=== PATIENT | female | born 1985 | race Caucasian/White ===

== ENCOUNTER 2017-12-24 05:35 | Inpatient (IN) | payer BC, SELFPAY ==
[2017-12-24 06:26] VITALS: BMI 43.4
[2017-12-24] MEDS: Lactated Ringers 1,000 ML 50 ML IV ×4 (06:35→18:57)
[2017-12-24 07:07] LABS: Hematocrit 35.5 % (37-47); Hemoglobin 11.5 g/dl (12.0-15.0); Mean Corp Hgb Conc 32.4 g/gl (32-36); Mean Corpuscular Volume 80.1 fL (81-99); Mean Platelet Vol. 11.5 fl (6.2-12.0); Platelet Count 287 K/mm3 (150-450); RBC Distribution Width CV 17.7 % (11.6-14.6); RBC Distribution Width SD 51.3 fl (35.1-43.9); Red Blood Count 4.43 M/mm3 (4.2-5.4); White Blood Count 13.1 K/mm3 (4.4-11.0)
[2017-12-24 07:10] LABS: Scan Indicated on CBC? Y/N NO
[2017-12-24] MEDS: Ondansetron 4 MG/2 ML Vial IV ×2 (07:11→15:15)
[2017-12-24 07:30] LABS: ROM Internal Control Test YES-OK TO RESULT pt. (Internal QC)
[2017-12-24 07:32] LABS: ROM Patient Test POSITIVE (Negative)
[2017-12-24 07:46] LABS: ALB/GLOB Ratio 0.6 RATIO (0.9-2.4); AST(SGOT) 12 U/L (15-37); Alanine Aminotransfer ALT/SGPT 11 U/L (13-56); Albumin, Serum 2.5 g/dL (3.2-5.0); Alkaline Phosphatase 135 U/L (45-117); Anion Gap 13 (5-15); BUN 11 mg/dL (7-18); BUN/Creat Ratio 12.8 RATIO (10-20); Calcium,Total 8.6 mg/dL (8.5-10.1); Chloride 105 mmol/L (98-107); Creatinine, Serum 0.86 mg/dL (0.55-1.02); EST Glomerular Filtration Rate 82 mL/min (>60); Est Glom Filt Rate - Afr Amer 99 mL/min (>60); Estimated Creatinine Clearance 92.17 ml/min; Globulin 4.5 g/dL (2.2-4.2); Glucose 105 mg/dL (74-106); LDH 188 U/L (84-246); Sodium Level 137 mmol/L (136-145); Uric Acid 6.1 mg/dL (2.6-6.0)
--- NOTE | 2017-12-24 08:54 | PCM.PN.BLA ---
Progress Note LABOR PROGRESS NOTE Comfortable with epidural and no complaints. AVSS, BPs 140s/90s GEN - NAD, AAO x 3 FHR 140, moderate variability, + late decelerations TOCO 5/10 min SVE 1cm --> 4/90/-1 with manual lysis of cervical scar tissue; cephalic and OA. A/P: 32yo @ 39wga in active labor, SROM, Cat II FHR -- likely gestational hypertension -GBS neg -Will collect urine p/c from [facility] to r/o preeclampsia -Progressing in labor, maternal repositioning, bolus prn for late decelerations - status overall reassuring
[2017-12-24 09:59] LABS: Protein, Urine (Random) 24.6 mg/dL (<11.9); Protein:Creat Ratio 202 mg/g CRE (0-200)
--- NOTE | 2017-12-24 18:14 | PCM.PN.BLA ---
Progress Note LABOR PROGRESS NOTE Report fatigue with pushing. AVSS GEN - NAD, AAO x 3 FHR 155, moderate variability, + variables - nonrecurrent TOCO 4/10 min SVE FD/0 station, OA with mild caput A/P: 32yo @ 39wga with SROM, in second stage, Cat II FHR - status overall reassuring -Bedside US performed confirming fetus in OA -Will continue pushing given patient already labored down x 1 hour -Repeat exam in 1-2 hours
--- NOTE | 2017-12-24 19:16 | PCM.PN.BLA ---
Progress Note LABOR PROGRESS NOTE Prolonged FHR deceleration nadired to 80s bpm x 3 minutes occurred while patient transferring from hands and knees to maternal side with return to baseline at 150 bpm with minimal variability. SVE FD/0, caput unchanged. 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 She requests a fifteen minute break from pushing due to fatigue. Patient pushed approximately 1.75 hours with no descent thus far and demonstrated good maternal effort on my prior exam. Reviewed indications for section -- 4h pushing. risks reviewed including bleeding, infection, VTE, bowel or bladder injury. EFW 3700-3800g based on most recent US, however given obesity, PCOS and elevated 1h GTT - high risk for macrosomia. I advised at least additional hour of pushing with frequent position changes after her break and will reassess with exam. If no further descent after approximately 3 hours pushing, will plan for section given risk factors. Patient in agreement with plan.
--- NOTE | 2017-12-24 19:50 | PN_ITS ---
Progress Note LABOR PROGRESS NOTE Prolonged FHR deceleration nadired to 80s bpm x 3 minutes occurred while patient transferring from hands and knees to maternal side with return to baseline at 150 bpm with minimal variability. SVE FD/0, caput unchanged. 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 She requests a fifteen minute break from pushing due to fatigue. Patient pushed approximately 1.75 hours with no descent thus far and demonstrated good maternal effort on my prior exam. Reviewed indications for section -- 4h pushing. risks reviewed including bleeding, infection, VTE, bowel or bladder injury. EFW 3700-3800g based on most recent US, however given obesity , PCOS and elevated 1h GTT - high risk for macrosomia. I advised at least additional hour of pushing with frequent position changes after her break and will reassess with exam. If no further descent after approximately 3 hours pushing, will plan for section given risk factors. Patient in agreement with plan.
--- NOTE | 2017-12-24 21:03 | PCM.PN.BLA ---
Progress Note LABOR PROGRESS NOTE C/o headache and nausea. Denies vision changes. Relates significant fatigue. AVSS, BP 120s-130s/70s GEN - NAD, AAO x 3 FHR 150 minimal variability, no accelerations, + variable deceleration TOCO 4/10 min SVE FD/0, caput remains unchanged A/P: 32yo @ 39wga with arrest of descent, Cat II FHR -Reglan for headache and nausea -No further descent on exam despite approximately 3h pushing and maternal fatigue. FD for 5 hours. -Will proceed with section. Reviewed C/S risks including pain, bleeding, hemorrhage, possibly requiring hysterectomy, infection including wound infection or endometritis, VTE, bowel or bladder injury, laceration and TTN. Patient and given opportunity to answer questions and questions answered to their satisfaction.
[2017-12-24] MEDS: Metoclopramide 10 MG/2 ML Vial IV (21:11)
[2017-12-24] MEDS: Sodium Citrate/Citric Acid 30 ML UDC PO ×2 (21:11→21:35)
[2017-12-24] MEDS: Clindamycin 900 MG/50 ML BAG 75 MG IV (21:40)
[2017-12-24] MEDS: Oxytocin 30 units/NS 500 ml 30 UNITS/500 ML IV.SOLN 167 UNITS IV (22:45)
--- NOTE | 2017-12-24 23:08 | OP.PN_ITS ---
- Problem List (1) Arrest of descent, delivered, current hospitalization Status: Acute (2) delivery delivered Status: Acute G-[id number]-Gbjwwjjto PostOp Date of Procedure: 12/24/17 Primary Surgeon/Physician: Jessika Mota, preparation department supervisor: [place]ia Shipley Pre-op Diagnosis: Arrrest of Descent Post-Op Diagnosis: Arrrest of Descent Surgery/Procedure Performed: Primary low transverse Section Description of Surgical Findings:: Male , Apgars 4, 9 and 9. Weight 4114g Estimated Blood Loss: 800 mL Specimens Removed: placenta to WP Drain: Rowland to straight drain Type of Anesthesia: Epidural, Local, - - Ketamine - Admit VTE Documentation VTE Present on Admission: No VTE Mechan Device Prophylaxis: SCD's VTE Pharm Prophylaxis ordered?: No
--- NOTE | 2017-12-24 23:08 | PCM.OB.CSR ---
- Problem List (1) Arrest of descent, delivered, current hospitalization Status: Acute (2) delivery delivered Status: Acute (3) 39 weeks gestation of Status: Acute Delivery Classification: JOSE Final NELDA: 12/31/17 Final NELDA Source: US <20 weeks Gestational age: 39 Weeks and 0 Days [place] doctor who attended delivery (if requested by OB): Denise Li Indications: Rene is a 32-year-old 2 para [id number] weeks gestational age admitted with spontaneous rupture of membranes at 1 cm dilation. She progressed in labor to fully dilated and 0 station. Despite full dilatation for more than 5 hours and pushing for approximately 3 hours there is no further descent of the head. She was counseled and in light of no descent and several risk factors for macrosomia she was advised to proceed with section at this time versus prolonging the second stage. Risks, benefits, indications and alternatives were discussed at length. The patient desired to proceed. Indications for : Arrrest of Descent Description of Procedure: Male , Apgars 4, 9 and 9. Weight 4114g The patient was taken to the operating room and spinal analgesia was administered. She is placed in a dorsal supine position with left lateral tilt. The perineum, vagina and abdomen were prepped and draped in sterile fashion. Timeout was performed. The epidural was not adequate for analgesia despite dosing and waiting approximately 10 minutes. I discussed with the patient further pain management options including nitrous oxide, ketamine, general anesthesia for her section reviewing the risks, benefits of each. She opted for ketamine. I proceeded with lateral ilioinguinal blocks injecting a total of 10 cc of 1% lidocaine diluted in 10 cc of normal saline as well as an additional 5 cc of lidocaine along the anticipated incision. This analgesia was found to be adequate. IV ketamine was administered per anesthesiology. A Pfannenstiel incision was made using a scalpel and brought down to incise the subcutaneous tissue and rectus fascia at the midline. Subcutaneous tissue was bluntly dissected off the fascia laterally. The fascial incision was dissected laterally and cephalad using curved Bland scissors. The superior leaflet of the rectus fascia was grasped using Jazmin clamps and bluntly dissected and sharply dissected from the underlying rectus muscle. In a similar fashion the inferior rectus fascia was dissected from the underlying muscle. The rectus muscles were bluntly at the midline. The peritoneum was identified and entered sharply. The bladder blade was placed into the abdomen and the vesicouterine peritoneal fold identified. The fold was incised and a bladder flap created. Bladder blade was then repositioned to the abdomen. A low transverse hysterotomy was made using the [Metzenbaum scissors] to level of the membranes. The hysterotomy was extended bluntly cephalad and caudad. The membranes were then ruptured revealing clear fluid. The head was elevated and brought to the level of the hysterotomy and the delivered revealing vigorous [male] infant. The appeared to have decreasing respiratory rate thus the cord was doubly clamped and cut after approximately 15 seconds. The infant was passed to awaiting [nursery personnel] and pediatric hospitalist. The placenta was [expressed] from the uterus and appeared intact on inspection. The uterus was cleared of debris. The hysterotomy was then repaired intracorporeally using 0 Vicryl running lock suture. She did complain of some pain during hysterotomy repair and additional 5 cc of 1% lidocaine diluted in 5 cc of normal saline was injected along the hysterotomy line. Malka was placed for continued hemostasis and the bladder blade was removed. The anterior cul-de-sac was cleared of debris. The peritoneum was reapproximated using 2-0 Vicryl running suture. The rectus fascia was closed using 0 Vicryl running suture. The subcutaneous tissue was injected with an additional 5 cc of the above mentioned lidocaine concentration. The subcutaneous tissue was reapproximated using 2-0 Vicryl. The skin was closed using 4-0 Monocryl subcuticularly by the PLC PROGRAMMER under my supervision. This was followed by Cavchan and a Mepilex occlusive dressing was placed over the incision. The fundus was firm. The patient was then transferred to the recovery room without complication. Sponge, instrument, and needle counts were correct ?2. I was present for the entire procedure. Amniotic Membrane Rupture Type: Spontaneous Amniotic Fluid Description: Clear Placenta Disposition: [facility] Specimen(s) sent to pathology: placenta to WP Drain: Rowland to straight drain Cord Entanglement: True Knot(s), - - true knot x 1 Nuchal Cord Compression: Without compression Cord Vessel Description: 3 Vessels Esitmated Blood Loss (ml): 800 Infant Gender: Male (1 minute): 4 (5 minute): 9 Delayed cord clamping: Yes Pre-op Antibiotic Given: - - Clindamycin 900mg IV x 1, Gentamicin 5mg/kg IV x 1 Pt instructed on risks of surgery: Bleeding, Anesthesia Risks, Infection, Injury to surrounding structure(s) including bowel and bladder Complications: None - Admit VTE Documentation VTE Present on Admission: No VTE Mechan Device Prophylaxis: SCD's VTE Pharm Prophylaxis ordered?: No
--- NOTE | 2017-12-24 23:18 | OP.PCM_ITS ---
- Problem List (1) Arrest of descent, delivered, current hospitalization Status: Acute (2) delivery delivered Status: Acute (3) 39 weeks gestation of Status: Acute Delivery Classification: JOSE Final NELDA: 12/31/17 Final NELDA Source: US <20 weeks Gestational age: 39 Weeks and 0 Days [place] doctor who attended delivery (if requested by OB): Denise Li Indications: Rene is a 32-year-old 2 para [id number] weeks gestational age admitted with spontaneous rupture of membranes at 1 cm dilation. She progressed in labor to fully dilated and 0 station. Despite full dilatation for more than 5 hours and pushing for approximately 3 hours there is no further descent of the head. She was counseled and in light of no descent and several risk factors for macrosomia she was advised to proceed with section at this time versus prolonging the second stage. Risks, benefits, indications and alternatives were discussed at length. The patient desired to proceed. Indications for : Arrrest of Descent Description of Procedure: Male , Apgars 4, 9 and 9. Weight 4114g The patient was taken to the operating room and spinal analgesia was administered. She is placed in a dorsal supine position with left lateral tilt. The perineum, vagina and abdomen were prepped and draped in sterile fashion. Timeout was performed. The epidural was not adequate for analgesia despite dosing and waiting approximately 10 minutes. I discussed with the patient further pain management options including nitrous oxide, ketamine, general anesthesia for her section reviewing the risks, benefits of each. She opted for ketamine. I proceeded with lateral ilioinguinal blocks injecting a total of 10 cc of 1% lidocaine diluted in 10 cc of normal saline as well as an additional 5 cc of lidocaine along the anticipated incision. This analgesia was found to be adequate. IV ketamine was administered per anesthesiology. A Pfannenstiel incision was made using a scalpel and brought down to incise the subcutaneous tissue and rectus fascia at the midline. Subcutaneous tissue was bluntly dissected off the fascia laterally. The fascial incision was dissected laterally and cephalad using curved Bland scissors. The superior leaflet of the rectus fascia was grasped using Jazmin clamps and bluntly dissected and sharply dissected from the underlying rectus muscle. In a similar fashion the inferior rectus fascia was dissected from the underlying muscle. The rectus muscles were bluntly at the midline. The peritoneum was identified and entered sharply. The bladder blade was placed into the abdomen and the vesicouterine peritoneal fold identified. The fold was incised and a bladder flap created. Bladder blade was then repositioned to the abdomen. A low transverse hysterotomy was made using the [Metzenbaum scissors] to level of the membranes. The hysterotomy was extended bluntly cephalad and caudad. The membranes were then ruptured revealing clear fluid. The head was elevated and brought to the level of the hysterotomy and the delivered revealing vigorous [male] . The appeared to have decreasing respiratory rate thus the cord was doubly clamped and cut after approximately 15 seconds. The was passed to awaiting [nursery personnel] and pediatric hospitalist. The placenta was [expressed] from the uterus and appeared intact on inspection. The uterus was cleared of debris. The hysterotomy was then repaired intracorporeally using 0 Vicryl running lock suture. She did complain of some pain during hysterotomy repair and additional 5 cc of 1% lidocaine diluted in 5 cc of normal saline was injected along the hysterotomy line. Malka was placed for continued hemostasis and the bladder blade was removed. The anterior cul-de-sac was cleared of debris. The peritoneum was reapproximated using 2-0 Vicryl running suture. The rectus fascia was closed using 0 Vicryl running suture. The subcutaneous tissue was injected with an additional 5 cc of the above mentioned lidocaine concentration. The subcutaneous tissue was reapproximated using 2-0 Vicryl. The skin was closed using 4-0 Monocryl subcuticularly by the ORCHESTRA DIRECTOR under my supervision. This was followed by Cavchan and a Mepilex occlusive dressing was placed over the incision. The fundus was firm. The patient was then transferred to the recovery room without complication. Sponge, instrument, and needle counts were correct ?2. I was present for the entire procedure. Amniotic Membrane Rupture Type: Spontaneous Amniotic Fluid Description: Clear Placenta Disposition: [facility] Specimen(s) sent to pathology: placenta to WP Drain: Rowland to straight drain Cord Entanglement: True Knot(s), - - true knot x 1 Nuchal Cord Compression: Without compression Cord Vessel Description: 3 Vessels Esitmated Blood Loss (ml): 800 Gender: Male (1 minute): 4 (5 minute): 9 Delayed cord clamping: Yes Pre-op Antibiotic Given: - - Clindamycin 900mg IV x 1, Gentamicin 5mg/kg IV x 1 Pt instructed on risks of surgery: Bleeding, Anesthesia Risks, Infection, Injury to surrounding structure(s) including bowel and bladder Complications: None - Admit VTE Documentation VTE Present on Admission: No VTE Mechan Device Prophylaxis: SCD's VTE Pharm Prophylaxis ordered?: No
[2017-12-24 23:20] VITALS: BP 128/70; BP 133/73; PULSE 86; RESP 16; TEMP 37.2; O2SAT 98
[2017-12-24 23:35] VITALS: BP 130/73; BP 133/73; PULSE 89; RESP 12; O2SAT 98
[2017-12-24 23:50] VITALS: BP 122/69; BP 133/73; PULSE 84; RESP 14; TEMP 37.4; O2SAT 96
[2017-12-25] VITALS (22 sets, daily range): BP systolic 108–133; BP diastolic 58–76; PULSE 77–104; RESP 14–18; TEMP 36.5–37.4; O2SAT 96–100
[2017-12-25] MEDS: Ondansetron 4 MG/2 ML Vial IV (01:22)
[2017-12-25] MEDS: Lactated Ringers 1,000 ML 100 ML IV ×2 (03:07→12:17)
[2017-12-25] MEDS: Ketorolac 30 MG/ML Syringe IV ×3 (05:19→17:40)
[2017-12-25] MEDS: Nalbuphine 10 MG/ML Ampul 5 MG IV (06:21)
[2017-12-25] MEDS: Levothyroxine 50 MCG Tablet PO (06:21)
[2017-12-25 07:16] LABS: Hematocrit 28.6 % (37-47); Hemoglobin 9.2 g/dl (12.0-15.0); Mean Corp Hgb Conc 32.2 g/gl (32-36); Mean Corpuscular Hgb 25.8 pg (27.0-32.0); Mean Corpuscular Volume 80.1 fL (81-99); Mean Platelet Vol. 10.7 fl (6.2-12.0); Platelet Count 234 K/mm3 (150-450); RBC Distribution Width CV 17.9 % (11.6-14.6); RBC Distribution Width SD 52.3 fl (35.1-43.9); Red Blood Count 3.57 M/mm3 (4.2-5.4); White Blood Count 15.2 K/mm3 (4.4-11.0)
[2017-12-25 07:18] LABS: Scan Indicated on CBC? Y/N NO
--- NOTE | 2017-12-25 08:01 | PCM.PN.OB ---
Patient Problems: Active and Suspected Problems Arrest of descent, delivered, current hospitalization (Acute) delivery delivered (Acute) 39 weeks gestation of (Acute) Subjective: Pain controlled. +nausea, denies vomiting. No flatus yet. Not yet out of bed. She is bottlefeeding. Objective: AVSS - Physical Exam General: Alert, Oriented x3, Cooperative, No apparent distress HEENT: Atraumatic, Normocephalic Lungs: Clear to auscultation, Normal air movement Cardiovascular: Regular rate, Regular Rhythm Abdomen: Soft, Non Tender, Non-Distended, - - Fundus firm and nontender at 2 FW below umbilicus, lochia scant, incisional dressing c/d/i Extremities: No edema Neurological: Neuro grossly intact Psych/Mental Status: Normal Affect, Appropriate, Alert and oriented to time, place, person, mood and affect Vital Signs Temp Pulse Resp BP Pulse Ox 98.6 F 90 18 120/59 L 99 12/25/17 07:30 12/25/17 07:30 12/25/17 07:30 12/25/17 07:30 12/25/17 07:30 Oxygen Delivery Method Room Air Weight: 126 kg Body Mass Index (BMI) 43.4 Intake and Output for Last 24 Hours 12/23/17 12/24/17 12/25/17 23:59 23:59 23:59 Intake Total 3738 / 3738 807 / 807 Output Total 1400 / 1400 950 / 950 Balance 2338 / 2338 -143 / -143 Laboratory Tests Past 24 Hrs 12/24/17 12/24/17 12/25/17 06:35 09:00 06:42 WBC 15.2 H RBC 3.57 L Hgb 9.2 L Hct 28.6 L MCV 80.1 L MCH 25.8 L MCHC 32.2 RDW 17.9 H RDW Differential 52.3 H Plt Count 234 MPV 10.7 U Random Total Protein 24.6 H Urine Creatinine 122.00 Protein/Creatinin Ratio 202 H Blood Type O POSITIVE Antibody Screen NEGATIVE Assessment/Plan Active and Suspected Problems Arrest of descent, delivered, current hospitalization (Acute) delivery delivered (Acute) 39 weeks gestation of (Acute) 32yo POD#1 s/p LTCS doing well. -Rh positive, Rubella immune -Bottlefeeding -Lovenox for DVT ppx, OOB to chair today -Routine postop care
[2017-12-25] MEDS: Enoxaparin 40 MG/0.4 ML Syringe SC (12:14)
--- NOTE | 2017-12-25 14:53 | NURSING ---
1430 While rounding, Mom has been pumping for 15 minutes and obtained almost a spoon full and taken to the special care nursery. We discussed prior breast massage and expression to help with accelerating her milk supply. We discussed starting her pumping at a slower suction around 30 and increase as able and comfortable. Colostrum taken to [facility]. We also discussed good hydration and increasing her calories by 500 to help with providing a good supply. Encouraged Mom to call if any further questions or concerns with feedings. Shalom PHAN
[2017-12-26 00:10] VITALS: BP 132/74; PULSE 100; RESP 18; TEMP 36.5
[2017-12-26] MEDS: Ketorolac 30 MG/ML Syringe IV ×4 (00:34→17:39)
[2017-12-26] MEDS: 0.9% Saline Lock 10 ML Syringe IV ×3 (00:35→17:39)
[2017-12-26 06:00] VITALS: BP 106/67; PULSE 76; RESP 16; TEMP 36.3
[2017-12-26] MEDS: Levothyroxine 50 MCG Tablet PO (06:07)
[2017-12-26 08:00] VITALS: BP 130/75; PULSE 80; RESP 20; TEMP 36.1; O2SAT 99
[2017-12-26] MEDS: oxyCODONE 5 MG Tablet PO ×3 (09:06→23:06)
--- NOTE | 2017-12-26 13:11 | PCM.PN.OB ---
Patient Problems: Active and Suspected Problems Arrest of descent, delivered, current hospitalization (Acute) delivery delivered (Acute) 39 weeks gestation of (Acute) Subjective: Doing well. pain well controlled. Bleeding light. Pumping and breast feeding. No N/V. Voiding. Objective: Afeb VSS - Physical Exam General: Alert, Oriented x3, Cooperative, No apparent distress Lungs: Clear to auscultation, Normal air movement Cardiovascular: Regular rate, Regular Rhythm Abdomen: Soft, Non Tender, Non-Distended, - - Incision dressing in place. No erythema Extremities: No edema, No Calf Tenderness Skin: No rashes Neurological: Neuro grossly intact Psych/Mental Status: Normal Affect Comment: lochia light Vital Signs Temp Pulse Resp BP Pulse Ox 97.0 F L 80 20 H 130/75 H 99 12/26/17 08:00 12/26/17 08:00 12/26/17 08:00 12/26/17 08:00 12/26/17 08:00 Oxygen Delivery Method Room Air Weight: 277 lb 12.519 oz Body Mass Index (BMI) 43.4 Intake and Output for Last 24 Hours 12/24/17 12/25/17 12/26/17 23:59 23:59 23:59 Intake Total 3738 / 3738 1875 / 1875 Output Total 1400 / 1400 3550 / 3550 200 / 200 Balance 2338 / 2338 -1675 / -1675 -200 / -200 Assessment/Plan Active and Suspected Problems Arrest of descent, delivered, current hospitalization (Acute) delivery delivered (Acute) 39 weeks gestation of (Acute) Doing well on POD#2 s/p primary C/S. Continue routine PO care. Anticipate discharge home tomorrow.
[2017-12-26 13:30] VITALS: BP 120/77; PULSE 97; RESP 16; TEMP 36; O2SAT 98
[2017-12-26 17:00] VITALS: BP 148/67; PULSE 86; RESP 16; TEMP 36.8; O2SAT 97
[2017-12-26] MEDS: Senna/Docusate Sodium 1 Tablet PO (20:20)
[2017-12-26 20:30] VITALS: BP 128/64; PULSE 80; RESP 16; TEMP 36.7
[2017-12-27] MEDS: Ibuprofen 600 MG Tablet PO ×2 (00:57→13:38)
[2017-12-27 01:00] VITALS: BP 108/56; PULSE 67; RESP 18; TEMP 36.5
[2017-12-27] MEDS: Levothyroxine 50 MCG Tablet PO (06:04)
[2017-12-27] MEDS: oxyCODONE 5 MG Tablet PO ×2 (06:28→10:52)
[2017-12-27 08:39] VITALS: BP 111/66; PULSE 89; TEMP 36.4; O2SAT 98
--- NOTE | 2017-12-27 09:48 | PCM.PN.OB ---
Patient Problems: Active and Suspected Problems 39 weeks gestation of (Acute) delivery delivered (Acute) Arrest of descent, delivered, current hospitalization (Acute) Subjective: Doing well. Pain well controlled with PO medications. Breast and bottle feeding. Tolerating PO well. No dysuria. Bleeding light. Objective: Afeb VSS - Physical Exam General: Alert, Oriented x3, Cooperative, No apparent distress Lungs: Clear to auscultation, Normal air movement Cardiovascular: Regular rate, Regular Rhythm Abdomen: Soft, Non Tender, Non-Distended, - - Incision dressing dry no erythema Extremities: No edema, No Calf Tenderness Skin: No rashes Neurological: Neuro grossly intact Psych/Mental Status: Normal Affect Comment: Lochia light Vital Signs Temp Pulse Resp BP Pulse Ox 97.6 F L 89 18 111/66 98 12/27/17 08:39 12/27/17 08:39 12/27/17 01:00 12/27/17 08:39 12/27/17 08:39 Oxygen Delivery Method Room Air Weight: 277 lb 12.519 oz Body Mass Index (BMI) 43.4 Intake and Output for Last 24 Hours 12/25/17 12/26/17 12/27/17 23:59 23:59 23:59 Intake Total 1875 / 1875 Output Total 3550 / 3550 200 / 200 Balance -1675 / -1675 -200 / -200 Assessment/Plan Active and Suspected Problems 39 weeks gestation of (Acute) delivery delivered (Acute) Arrest of descent, delivered, current hospitalization (Acute) Doing well on POD#3. Cleared for discharge. Home going instructions and warnings given. Will likely stay overnight as baby in special care nursery.
--- NOTE | 2017-12-27 09:51 | PCM.DC.SUM ---
Discharge Date and Diagnosis - Problem List Patient Problems: Active and Suspected Problems 39 weeks gestation of (Acute) delivery delivered (Acute) Arrest of descent, delivered, current hospitalization (Acute) Date of Admission: 12/24/17 Date of Discharge: 12/27/17 - Primary Discharge Diagnosis Active and Suspected Problems 39 weeks gestation of (Acute) delivery delivered (Acute) Arrest of descent, delivered, current hospitalization (Acute) Hospital Course and Treatment Operations: - - Primary LTCS Summary of Care Provided: The patient is a 32 year old F [admitted with SROM at term. Progressed to FD but with little descent during pushing efforts. Primary low transverse section performed without complication with delivery of a live male . Postoperative course unremarkable. Discharged on POD#3.] Discharge Diet: No Restrictions Discharge Activity: Return to Normal Activity, May Not Drive, May not drive while taking narcotic pain medications., May Shower Return to work on:: 02/23/18 May resume sexual activity in: 4-6 weeks Call your doctor if your incision/area has: Sudden Increased Bleeding, Increased Pain/ Swelling, Increased Redness, Foul Smelling Discharge, Swelling at the incision site Call your doctor if you observe: Fever of 101 or Higher, Inability to urinate, Inability to have a bowel movement, Using more than one pad per hour, Shortness of breath, Chest pain, Calf discomfort, Uncontrolled pain Remove Dressing in (days):: 2 Cleanse incision/area with: Soap & Water Home Medications: Medications to take at Discharge Levothyroxine [Synthroid] 50 mcg PO DAILY 05/17/17 Pnv No.122/Iron/Folic Acid [ Multi Tablet] 1 tab PO DAILY 08/24/17 Acetaminophen [Tylenol Extra Strength] 500 mg PO Q8H 12/24/17 Ibuprofen [Motrin] 800 mg PO TID PRN PRN #30 tab 12/25/17 Senna/Docusate Sodium [Senokot-S] 1 - 2 tab PO DAILY PRN #30 tablet 12/25/17 Breast Pump [Pump in Style Advanced] 1 ea MC Q2H #1 ea 12/26/17 Oxycodone [Oxyir] 1 - 2 tab PO Q4H PRN PRN #30 tab 12/26/17 Following Prescrptions Were Given to Patient: Oxycodone [Oxyir] 1 - 2 tab PO Q4H PRN PRN #30 tab PRN Reason: Pain Breast Pump [Pump in Style Advanced] 1 ea MC Q2H #1 ea Ibuprofen [Motrin] 800 mg PO TID PRN PRN #30 tab PRN Reason: Pain Primary Care Physician: Care Physician,No Primary [Primary Care Provider] - Please Follow Up With: Sedrick Wong MD When: one week Patient Instructions: Incision Care After Vaginal Disposition: Home Minutes spent on discharge:: 15 Patient Condition:: Good Meaningful Use Info Meaningful Use Diagnoses (Choose all that apply): None applicable
--- NOTE | 2017-12-27 09:59 | DCINST_ITS ---
Discharge Diet: No Restrictions Discharge Activity: Return to Normal Activity, May Not Drive, May not drive while taking narcotic pain medications., May Shower Return to work on:: 02/23/18 May resume sexual activity in: 4-6 weeks Call your doctor if your incision/area has: Sudden Increased Bleeding, Increased Pain/ Swelling, Increased Redness, Foul Smelling Discharge, Swelling at the incision site Call your doctor if you observe: Fever of 101 or Higher, Inability to urinate, Inability to have a bowel movement, Using more than one pad per hour, Shortness of breath, Chest pain, Calf discomfort, Uncontrolled pain Remove Dressing in (days):: 2 Cleanse incision/area with: Soap & Water Instructions: Incision Care After Vaginal Additional Instructions: If you experience any of the following, contact your healthcare provider. * Bleeding that soaks a pad every hour for 2 hours * Fever 100.4 or higher * Unrelieved incision or abdominal pain * Swelling, redness, discharge or bleeding from your incision or episiotomy site * Your incision begins to separate * Problems urinating (including inability to urinate or burning while urinating) . * Visual changes * Severe headache * Flu-like symptoms * Pain or redness in one of both of your breasts * Pain, warmth, tenderness or swelling in your legs, especially the calf area * Frequent nausea and vomiting * Symptoms of depression or anxiety If you experience any of the following, call 911 or go to the nearest Emergency Room. * Chest pain * Problems breathing * Seizure activity * Partial or complete paralysis of a body part, slurred speech, weakness or drooping of the face, or a sudden inability to walk or hold your balance Allergies/Adverse Reactions: Allergies latex Allergy (Mild, Verified 12/24/17 06:22) Rash hands bleeding from gloves Penicillins [PCN] Allergy (Verified 12/24/17 06:22) Hives Medications to take at Discharge Levothyroxine [Synthroid] 50 mcg PO DAILY 05/17/17 Pnv No.122/Iron/Folic Acid [ Multi Tablet] 1 tab PO DAILY 08/24/17 Acetaminophen [Tylenol Extra Strength] 500 mg PO Q8H 12/24/17 Ibuprofen [Motrin] 800 mg PO TID PRN PRN #30 tab 12/25/17 Senna/Docusate Sodium [Senokot-S] 1 - 2 tab PO DAILY PRN #30 tablet 12/25/17 Breast Pump [Pump in Style Advanced] 1 ea MC Q2H #1 ea 12/26/17 Oxycodone [Oxyir] 1 - 2 tab PO Q4H PRN PRN #30 tab 12/26/17 Oxycodone [Oxyir] 5 - 10 mg PO Q4H PRN PRN 7 Days #28 tablet 12/27/17 Oxycodone [Oxyir] 5 mg PO Q4H PRN PRN 7 Days #28 tab 12/27/17 The following prescriptions were given: Oxycodone [Oxyir] 1 - 2 tab PO Q4H PRN PRN #30 tab PRN Reason: Pain Oxycodone [Oxyir] 5 mg PO Q4H PRN PRN 7 Days #28 tab PRN Reason: Pain Breast Pump [Pump in Style Advanced] 1 ea MC Q2H #1 ea Ibuprofen [Motrin] 800 mg PO TID PRN PRN #30 tab PRN Reason: Pain Follow-Up: Call to make an appointment with your doctor for an incision check in 1-2 weeks. You will also need a 6 week post- follow up appointment. Please Follow Up With: Sedrick Wong MD When: one week Primary Care Physician: Care Physician,No Primary [Primary Care Provider] - Proposed Discharge Date: 12/27/17
[2017-12-27 13:40] VITALS: BP 146/90; PULSE 79; RESP 20; TEMP 36.4; O2SAT 97
--- NOTE | 2017-12-27 16:00 | CASEMGMT ---
Social Work Note - Labor and Delivery unit Assessment completed after referral from the dining services manager. Full assessment documented in the infant's chart where order originated. Referral due to maternal mental health history. Met with patient/mother of baby (MOB) who shared about past history related to depression, anxiety, and OCD. MOB reports past hospitalization in 2013, denies any history of attempt or thoughts of suicide. MOB reports to feel connection with baby, to love baby, and agrees to seek out support should symptoms of mental health arise. MOB accept community resource information, including counseling options and packet of information on depression. MOB also agrees to [facility] referral. MOB reports to have needed baby supplies, to have transportation, and to have adequate support from and friends. No other services requested or indicated. Refer to baby's chart for further details of assessment. -OPHELIA Zaman, EL
== END 2017-12-27 16:20 | disposition home or self-care (01) | DRG 765 ==
PROVIDERS: Admitting Provider Obstetrics & Gynecology; Visit Provider Obstetrics & Gynecology
DX: O62.1 Secondary uterine inertia (principal); O99.354 Diseases of the nervous system complicating childbirth; O76 Abnormality in fetal heart rate and rhythm complicating labor and delivery; O42.02 Full-term premature rupture of membranes, onset of labor within 24 hours of rupture; O13.4 Gestational [pregnancy-induced] hypertension without significant proteinuria, complicating childbirth; O21.9 Vomiting of pregnancy, unspecified; O75.81 Maternal exhaustion complicating labor and delivery; O69.81X0 Labor and delivery complicated by cord around neck, without compression, not applicable or unspecified; G43.909 Migraine, unspecified, not intractable, without status migrainosus; Z3A.39 39 weeks gestation of pregnancy; Z37.0 Single live birth
CPT/HCPCS: 59025; 59050; 80053; 82570; 83615; 84112; 84156; 84550; 85027; 86850; 86900; 99218; J7120; A4216; G0378; J2405; J3490

== ENCOUNTER 2018-01-17 16:39 | Emergency (ER) | payer BC, SELFPAY ==
[2018-01-17 16:41] VITALS: BP 88/47; PULSE 94; RESP 16; TEMP 36.2; O2SAT 94; BMI 38.3
[2018-01-17 16:44] VITALS: BP 92/49; PULSE 91; RESP 16; O2SAT 96
[2018-01-17 16:56] VITALS: BP 116/70; PULSE 98; RESP 16; O2SAT 96
[2018-01-17 17:17] VITALS: BP 124/76; PULSE 72; RESP 16; TEMP 38.1; O2SAT 98
--- NOTE | 2018-01-17 17:39 | CT_ITS ---
STUDY: CT ABDOMEN AND PELVIS WITH CONTRAST REASON FOR EXAM: Female, 32 years old. Left-sided abdominal pain status post . RADIATION DOSAGE (If Supplied By Facility): CTDIvol = ( 18.53 ) mGy, DLP = ( 1321.49 ) mGycm TECHNIQUE: Transaxial images were obtained from the dome of the diaphragm to the symphysis pubis with oral contrast. 100 ml of Isovue 300 contrast was administered. Sagittal and coronal images were reconstructed. Individualized dose optimization techniques were used for this CT. COMPARISON: None. FINDINGS: The visualized lung bases are unremarkable. The visualized portions of the heart are within normal limits. Normal liver. There are surgical clips in the gallbladder fossa consistent with a prior cholecystectomy. Normal spleen. Normal pancreas. Normal bilateral adrenal glands. Normal right kidney. Normal left kidney. Normal visualized stomach. Normal small intestine. Diverticulosis of the colon without evidence of acute diverticulitis. The appendix is visualized and appears normal. Normal abdominal aorta. Normal inferior vena cava. Normal retroperitoneum. Normal urinary bladder. Normal size uterus. Air is identified in the endometrial cavity. Negative for an intrauterine fluid collection. Normal adnexal areas. Negative for free fluid of the pelvis. Negative for focal hematoma, abscess or fluid collection of the abdominal wall. Normal osseous structures. CT/Abdomen/Pelvis WITH Contrast IMPRESSION: Negative for acute bowel related findings. Negative for bowel obstruction, perforation or inflammatory bowel changes. Minimal diverticulosis without evidence of acute diverticulitis. A normal appendix is identified. Normal kidneys bilaterally without hydronephrosis or stones. Unremarkable urinary bladder. Normal size uterus and normal adnexal areas with no pelvic mass or free fluid. Air in the endometrial and endocervical space is not a common finding after but I suppose understandable. No findings to suggest a bowel related fistula. Obviously, endometritis is not excludable by this exam. Minimal postoperative changes of the pelvic wall without a substantial hematoma, fluid collection or abscess. Electronically Signed: Rajani Segal MD at 19:58 EST , Service support ,
[2018-01-17] MEDS: 0.9% Normal Saline 1,000 ML 1000 ML IV (17:57)
[2018-01-17] MEDS: Ondansetron 4 MG/2 ML Vial IV (17:57)
[2018-01-17 18:18] LABS: Absolute Lymphocyte Count 0.88 X10^3/ul (0.83-4.51); Absolute Neutrophil Count 8.5 X10^3/uL (2.0-7.7); Basophil# 0.01 X10^3/uL; Basophil% 0.1 % (0-1); Hematocrit 38.6 % (37-47); Hemoglobin 12.3 g/dl (12.0-15.0); Lymphocyte # 0.88 X10^3/ul (4.0); Mean Corp Hgb Conc 31.9 g/gl (32-36); Mean Corpuscular Hgb 25.9 pg (27.0-32.0); Mean Corpuscular Volume 81.3 fL (81-99); Mean Platelet Vol. 10.4 fl (6.2-12.0); Monocyte% 4.1 % (0-10); Neutrophil # 8.46 X10^3/uL (2.7-7.7); Neutrophil % 86.7 % (47-70); Platelet Count 323 K/mm3 (150-450); RBC Distribution Width SD 47.9 fl (35.1-43.9); Red Blood Count 4.75 M/mm3 (4.2-5.4); White Blood Count 9.8 K/mm3 (4.4-11.0)
[2018-01-17 18:19] LABS: POSITIVE COUNT NO; POSITIVE DIFFERENTIAL NO; POSITIVE MORPHOLOGY NO
[2018-01-17 18:38] LABS: Bacteria 0 SEEN /hpf (None Seen); Mucous, Urine 0 SEEN /hpf (<or=2+); Red Blood Cells-Urine 0 SEEN /hpf (0-5)
[2018-01-17 18:40] LABS: Anion Gap 11 (5-15); BUN 10 mg/dL (7-18); Calcium,Total 8.5 mg/dL (8.5-10.1); Chloride 105 mmol/L (98-107); Creatinine, Serum 1.11 mg/dL (0.55-1.02); EST Glomerular Filtration Rate 61 mL/min (>60); Est Glom Filt Rate - Afr Amer 74 mL/min (>60); Estimated Creatinine Clearance 71.41 ml/min; Glucose 108 mg/dL (74-106); Potassium 3.7 mmol/L (3.5-5.1); Sodium Level 138 mmol/L (136-145)
[2018-01-17 18:42] LABS: Color, Urine Yellow (Yellow); Glucose, Dipstick Normal (Normal); Ketone-Dipstick Negative (Negative); Leukocyte Esterase-Dipstick 25 /ul (Negative); Nitrite-Dipstick Negative (Negative); Occult Blood-Urine Negative /ul (Negative); Protein-Dipstick Negative (Negative); Urine Bilirubin Dipstick Negative (Negative); Urine Clarity Clear (Clear); Urine Urobilinogen Normal (Normal)
[2018-01-17 18:49] LABS: Squamous Epithelial Cells - UA 0-5 SEEN /hpf (5-10); White Blood Cells 0-5 SEEN /hpf (0-5)
[2018-01-17 18:52] LABS: Lactic Acid 2.4 mmol/L (0.4-2.0)
[2018-01-17 19:13] VITALS: BP 112/67; PULSE 96; RESP 16; O2SAT 95
--- NOTE | 2018-01-17 20:37 | US_ITS ---
STUDY: ULTRASOUND TRANSVAGINAL CLINICAL: Female, 32 years old. Fever in patient post by 3 weeks. TECHNIQUE: Transvaginal COMPARISON: Abdomen and pelvic CT exam of 01/17/2018. FINDINGS: The uterus is 13.7 x 8.2 x 5.2 cm. There are a series of bright echoes in the endometrial space consistent with air bubbles demonstrated on CT exam. Negative for focal fluid collection. Negative for other endometrial or myometrial mass. 1 nabothian cyst of the cervix. The right ovary is 4.3 x 2.8 x 2.1 cm with normal Doppler flow. The left ovary is not visualized. There is no free fluid in the pelvis. No additional adnexal masses. US/Transvaginal Non- IMPRESSION: Air identified in the endocervix and endometrial canal which is also demonstrated on the CT exam of the same day. Negative for focal fluid collection or abscess. There are no other specific ultrasound findings indicative of endometritis nor exclusive of the same. Normal right ovary. Nonvisualized left ovary. Left ovary appeared normal on the CT exam. Negative for adnexal masses or free fluid. Electronically Signed: Rajani Segal MD at 21:51 EST , Service support ,
[2018-01-17] MEDS: 0.9% Normal Saline 1,000 ML 999 ML IV (20:47)
[2018-01-17 21:37] VITALS: BP 112/63; PULSE 83; RESP 16; O2SAT 97
[2018-01-17 22:03] LABS: Reflex Lactate? Y
--- NOTE | 2018-01-17 22:29 | ED.VISSUMM ---
- ER Visit Summary Date of Service: 01/17/18 Chief Complaint: Abdominal pain and fever History of Present Illness: The patient is a [address] Wong. She had a on December [address] Rae Anderson. She followed up with Dr. Wong on December 31. She reports that she was doing well. However, she developed abdominal pain and a fever yesterday. She describes the pain as a sharp, stabbing pain that is 9 out of 10 with movement and 6 out of 10 when she remains still and takes Tylenol. She has been nauseated and vomited once. No blood or emesis. Her last problem was yesterday. She has had no melena or hematochezia. No dysuria or frequency. Patient reports that her lochia has decreased and there is no odor to it. She denies any vaginal discharge. She reports that her fevers been 102.6? today. She denies a sore throat or cough. States that she has a headache that is 7 out of 10 severity. States that she has had similar headaches in the past. She denies any neck pain. She did have an epidural. She denies any back pain. She is breast-feeding. She denies any breast pain or rash. Physical Examination: Vitals: Stable. Afebrile. General: Well-nourished and well-developed. Head: Normocephalic atraumatic. Neck: Supple, no lymphadenopathy. No JVD. Nontender. No meningismus. Cardiovascular: Regular rate and rhythm. No murmurs. Respiratory: No respiratory distress. Clear to auscultation bilaterally. Abdominal: Soft, moderate tenderness to palpation in the left lower quadrant, nondistended, normal bowel sounds. No guarding, rebound, or peritoneal signs. Incision is clean, dry, and intact. It is healing well. There is no surrounding erythema, induration, or pain. Back: Nontender. I am unable to visualize the site of her epidural. She has no pain with palpation of this area. Extremities: Nontender, no edema. Skin: Normal color, no rash. Neurologic: Alert and oriented ?3. Cranial nerves II through XII are intact. Normal strength and sensation. Psych: Normal affect. Test Results: CBC is remarkable for segment neutrophils of 87 lymphocytes of 9. Chem-7 is more for chloride of 1 week and creatinine 1.11. UA is negative. Lactic acid is 2.4. Clinical Impression(s) from Imaging Studies Abdomen/Pelvis CT 01/17/18 17:39 IMPRESSION: Negative for acute bowel related findings. Negative for bowel obstruction, perforation or inflammatory bowel changes. Minimal diverticulosis without evidence of acute diverticulitis. A normal appendix is identified. Normal kidneys bilaterally without hydronephrosis or stones. Unremarkable urinary bladder. Normal size uterus and normal adnexal areas with no pelvic mass or free fluid. Air in the endometrial and endocervical space is not a common finding after but I suppose understandable. No findings to suggest a bowel related fistula. Obviously, endometritis is not excludable by this exam. Minimal postoperative changes of the pelvic wall without a substantial hematoma, fluid collection or abscess. Transvaginal US 01/17/18 20:37 IMPRESSION: Air identified in the endocervix and endometrial canal which is also demonstrated on the CT exam of the same day. Negative for focal fluid collection or abscess. There are no other specific ultrasound findings indicative of endometritis nor exclusive of the same. Normal right ovary. Nonvisualized left ovary. Left ovary appeared normal on the CT exam. Negative for adnexal masses or free fluid. Emergency Department Course and Treatment: She was given 2 L of normal saline. She was given morphine and Zofran IV. She is resting comfortably and feels much improved. Treatment Plan: The patient was discussed with Dr. Navarro. At this time I do not have an explanation for her fever. She does not appear to have a postoperative infection. Her appendix is normal. There is no evidence of endometritis. She does not have mastitis. She does not have a urinary tract infection. She will be discharged with Percocet for pain and instructed to follow-up with Dr. Wong in 1-2 days for another exam. Return to the emergency department for any worsening symptoms. Disposition: To home in improved and stable condition. Impression: 1. 24 days status post . 2. Abdominal pain, uncertain cause. 3. Fever, uncertain cause. This note was generated with [employer] software. It may contain incorrect words, spelling, and punctuation that were not noted in review of the chart prior to signing ED Disposition - Plan for ED Patient: Disposition: Home or Assisted Living Chief Complaint: Fever Instructions: ED Fever Unconf Cause Prescriptions: Oxycodone HCl/Acetaminophen [Percocet 5/325] 1 tablet PO Q6H PRN PRN 3 Days #12 tablet PRN Reason: Pain Referrals: Sedrick Wong MD [STAFF PHYSICIAN] - 2 Days
[2018-01-17] MEDS: oxyCODONE 5 MG Tablet PO (22:53)
== END 2018-01-17 23:01 | disposition home or self-care (01) ==
PROVIDERS: Emergency Provider Emergency Medicine
DX: R10.32 Left lower quadrant pain (principal); R50.9 Fever, unspecified; E03.9 Hypothyroidism, unspecified
CPT/HCPCS: 74177; 76830; 80048; 81001; 83605; 85025; 93976; 96361; 96374; 96375; 96376; 99284; J7030; Q9967; J2405

== ENCOUNTER → 2020-08-25 18:00 | Outpatient (CLI) | payer BC, SELFPAY ==
[2020-08-25 11:27] VITALS: BMI 43.4
== END ==
PROVIDERS: Referring Provider Nurse Practitioner Family; Visit Provider Nurse Practitioner Family
DX: B34.9 Viral infection, unspecified (principal)
CPT/HCPCS: 87635; C9803; U0003